=== PATIENT | male | born 1975 | race Caucasian/White ===

== ENCOUNTER 2017-07-25 15:21 | Emergency (ER) | payer MEDICAID ==
[2017-07-25] MEDS ORDERED: Dexamethasone TAB* 4 MG PO ONE (17:54)
--- NOTE | 2017-07-25 17:55 | ED ---
Throat Pain/Nasal Congestion - HPI Summary HPI Summary: 42M presents with sore throat since Monday. He states that has pain with swallowing but denies any drooling, SOB, or chest pain. He denies any difficultly swallowing. He states he had this a year ago and it resolved on its own. He denies any sinus tenderness, ear pain, abdominal pain, n/v. He has history of strept. He still has tonsils. He denies any fevers. He has been using Tylenol for pain. He states pain is 4/10. - History of Current Complaint Chief Complaint: EDThroatPain Time Seen by Provider: 07/25/17 17:08 - Allergies/Home Medications Allergies/Adverse Reactions: Allergies Allergy/AdvReac Type Severity Reaction Status Date / Time No Known Allergies Allergy Verified 04/29/14 09:50 PMH/Surg Hx/FS Hx/Imm Hx Endocrine/Hematology History: Reports: Hx Blood Disorders - hemachromatosis Cardiovascular History: Reports: Hx Hypertension Respiratory History: Reports: Hx Seasonal Allergies, Hx Sleep Apnea - severe HERMINIA , current CPAP user. GI History: Reports: Hx Gastroesophageal Reflux Disease, Hx Ulcer - 2009 duodenal w/arterial bleed Musculoskeletal History: Reports: Hx Orthopedic Injury - (left) foot fx Sensory History: Reports: Hx Contacts or Glasses Opthamlomology History: Reports: Hx Contacts or Glasses Neurological History: Reports: Hx Developmental Delay - Surgical History Surgery Procedure, Year, and Place: [place] [facility] [place] [facility] [place] - [place]. [place] [facility] [place] [facility] [place] Infectious Disease History: No Infectious Disease History: Denies: Traveled Outside the [place] in Last 30 Days - Family History Known Family History: Positive: Diabetes - Social History Alcohol Use: Occasionally Substance Use Type: Reports: None Review of Systems Negative: Fever Positive: Sore Throat Negative: Chest Pain Negative: Shortness Of Breath All Other Systems Reviewed And Are Negative: Yes Physical Exam Triage Information Reviewed: Yes Vital Signs On Initial Exam: Initial Vitals Temp Pulse Resp BP Pulse Ox 98.8 F 72 18 126/69 97 07/25/17 15:41 07/25/17 15:41 07/25/17 15:41 07/25/17 15:41 07/25/17 15:41 Vital Signs Reviewed: Yes Appearance: Positive: Well-Appearing Skin: Positive: Warm, Dry Head/Face: Positive: Normal Head/Face Inspection Eyes: Positive: Normal, EOMI, BERTO, Conjunctiva Clear ENT: Positive: Pharyngeal erythema, TMs normal, Tonsillar swelling - +1, Tonsillar exudate, Uvula midline, Other - uvula enlarged with exuduate, soft palate symmetric. Negative: Trismus, Muffled voice Respiratory/Lung Sounds: Positive: Clear to Auscultation, Breath Sounds Present Cardiovascular: Positive: Normal, RRR Abdomen Description: Positive: Nontender, Soft Bowel Sounds: Positive: Present Musculoskeletal: Positive: Normal Neurological: Positive: Normal Psychiatric: Positive: Normal Diagnostics - Vital Signs Vital Signs Temp Pulse Resp BP Pulse Ox 07/25/17 15:41 98.8 F 72 18 126/69 97 - Laboratory Lab Statement: Any lab studies that have been ordered have been reviewed, and results considered in the medical decision making process. EENT Course/Dx - Course Course Of Treatment: 42M presents with sore throat since Monday. He states that has pain with swallowing but denies any drooling, SOB, or chest pain. He denies any difficultly swallowing. He states he had this a year ago and it resolved on its own. He denies any sinus tenderness, ear pain, abdominal pain, n/v. He has history of strept. He still has tonsils. He denies any fevers. He has been using Tylenol for pain. on exam tonsils +1 symmetric, uvula midline with large amount of swelling and exudate present, soft palate symmetric. neg trismus, muffled voice. managing secretions well. strept and mono neg. discussed case with dr ring. gave dose of decadron and augmentin. gave follow up for ent. told of signs to return to ED for. patient understand and agrees with plan. - Differential Diagnoses Differential Diagnoses: Peritonsillar Ulcer, Pharyngitis, Tonsilitis, URI/ Bronchitis - Diagnoses Provider Diagnoses: Uvulitis Discharge - Discharge Plan Condition: Good Disposition: HOME Prescriptions: Amoxicillin/Clavulanate TAB* [Augmentin TAB 875*] 875 mg PO BID #19 tab Dexamethasone TAB* [Decadron TAB*] 4 mg PO DAILY #4 tab Patient Education Materials: Uvulitis (ED) Referrals: Annette Jacobson MD [Primary Care Provider] - Ruparelia,Celestino, MD [Medical Doctor] - Additional Instructions: Take antibiotic twice a day for 10 days Take steriod once a day for 4 more days Follow up with ENT Return to ED if develop shortness of breath, inability to manage secretions, or any new or worsening symptoms
[2017-07-25 19:16] LABS: Manual Entry Verification ROB0080; Mono Internal Control QC Line Present
[2017-07-25] MEDS ORDERED: Amoxicillin/Clavulanate TAB* 875 MG PO ONE (19:17)
[2017-07-25 19:38] VITALS: BP 119/65
== END 2017-07-25 19:39 | disposition home or self-care (01) ==
LOC: ED 15:21
DX: K12.2 Cellulitis and abscess of mouth (principal); I10 Essential (primary) hypertension; K21.9 Gastro-esophageal reflux disease without esophagitis; R62.50 Unspecified lack of expected normal physiological development in childhood
CPT/HCPCS: 36415; 86308; 87651; 99282; A9270-GY; J8540

== ENCOUNTER 2017-11-19 20:05 | Emergency (ER) | payer MEDICAID ==
[2017-11-19] MEDS ORDERED: hydrOXYzine HCL TAB* 50 MG PO ONE (20:50)
[2017-11-19] MEDS ORDERED: Clobetasol 0.05% OINT* 30 GM TUBE TOPICAL SCH (21:00)
--- NOTE | 2017-11-19 21:30 | ED ---
Sunni Cedillo Julia, scribed for Curt Lopez MD on 11/19/17 at 2101 . Skin Complaint - HPI Summary HPI Summary: This patient is a 42 year old M presenting to [facility] accompanied by his partner with a chief complaint of bilateral lower extremity erythema and pruritus beginning today. Patient denies pain and fever. His partner reports lower extremity edema present at baseline. Patient denies history of eczema. Patient states triamcinolone cream used once a day usually provides relief from erythema and pruritus, but has not worked with one time use today. - History of Current Complaint Chief Complaint: EDExtremityLower Time Seen by Provider: 11/19/17 20:36 Stated Complaint: BOTH ANKLES SWOLLEN Hx Obtained From: Patient Onset/Duration: Started Hours Ago Skin Exposure Onset/Duration: Hours Ago Timing: Constant Pain Intensity: 0 Pain Scale Used: 0-10 Numeric Skin Location: Other: - bilateral lower extremity Character: Pruritus, Redness Associated Signs & Symptoms: Negative - Allergy/Home Medications Allergies/Adverse Reactions: Allergies Allergy/AdvReac Type Severity Reaction Status Date / Time No Known Allergies Allergy Verified 11/19/17 20:11 PMH/Surg Hx/FS Hx/Imm Hx Endocrine/Hematology History: Reports: Hx Blood Disorders - hemachromatosis Cardiovascular History: Reports: Hx Hypertension Respiratory History: Reports: Hx Seasonal Allergies, Hx Sleep Apnea - severe HERMINIA , current CPAP user. GI History: Reports: Hx Gastroesophageal Reflux Disease, Hx Ulcer - 2009 duodenal w/arterial bleed Musculoskeletal History: Reports: Hx Orthopedic Injury - (left) foot fx Sensory History: Reports: Hx Contacts or Glasses Opthamlomology History: Reports: Hx Contacts or Glasses Neurological History: Reports: Hx Developmental Delay - Surgical History Surgery Procedure, Year, and [place]: [place] [facility] [place] - [place]. [place] [facility] [place] [facility] [place]ious Disease History: No Infectious Disease History: Denies: Traveled Outside the [place] in Last 30 Days - Family History Known Family History: Positive: Diabetes - Social History Alcohol Use: Occasionally Substance Use Type: Reports: None Smoking Status (MU): Never Smoked Tobacco Review of Systems Negative: Fever Negative: Myalgia Positive: Other - lower extremity redness and pruitus All Other Systems Reviewed And Are Negative: Yes Physical Exam - Summary Physical Exam Summary: VITAL SIGNS: Reviewed. GENERAL: Patient is a well-developed and nourished male who is lying comfortable in the stretcher. Patient is not in any acute respiratory distress. HEAD AND FACE: No signs of trauma. No ecchymosis, hematomas or skull depressions. No sinus tenderness. EYES: PERRLA, EOMI x 2, No injected conjunctiva, no nystagmus. EARS: Hearing grossly intact. Ear canals and tympanic membranes are within normal limits. MOUTH: Oropharynx within normal limits. NECK: Supple, trachea is midline, no adenopathy, no JVD, no carotid bruit, no c- spine tenderness, neck with full ROM. CHEST: Symmetric, n SKIN: Dry and warm o tenderness at palpation LUNGS: Clear to auscultation bilaterally. No wheezing or crackles. CVS: Regular rate and rhythm, S1 and S2 present, no murmurs or gallops appreciated. ABDOMEN: Soft, non-tender. No signs of distention. No rebound no guarding, and no masses palpated. Bowel sounds are normal. EXTREMITIES: FROM in all major joints, no cyanosis or clubbing. Redness and pruritus of the bilateral lower extremities without tenderness. NEURO: Alert and oriented x 3. No acute neurological deficits. Speech is normal and follows commands. Triage Information Reviewed: Yes Vital Signs On Initial Exam: Initial Vitals Temp Pulse Resp BP Pulse Ox 98.4 F 107 18 155/101 97 11/19/17 20:07 11/19/17 20:07 11/19/17 20:07 11/19/17 20:07 11/19/17 20:07 Vital Signs Reviewed: Yes Diagnostics - Vital Signs Vital Signs Temp Pulse Resp BP Pulse Ox 11/19/17 20:07 98.4 F 107 18 155/101 97 - Laboratory Lab Statement: Any lab studies that have been ordered have been reviewed, and results considered in the medical decision making process. Re-Evaluation - Re-Evaluation 1 Re-Evaluation Time: 17:28 Comment: Discussed results with patient. Patient is discharged. Course/Dx - Course Course Of Treatment: Patient presents with bilateral lower extremity erythema and pruritus beginning today. Patient denies pain and fever. His partner reports lower extremity edema present at baseline. Patient's symptoms and physicial exam are consistent with contact dermatitis/ezcema. Patient is given Hydroxyzine and Clobetasol ointment. - Diagnoses Provider Diagnoses: Contact dermatitis Discharge - Discharge Plan Condition: Stable Disposition: HOME Prescriptions: hydrOXYzine pamoate [Vistaril] 50 mg PO Q8HR PRN #20 capsule PRN Reason: Itching Patient Education Materials: Contact Dermatitis (ED) Referrals: Annette Jacobson MD [Primary Care Provider] - 2 Days (Follow up with your primary care provider in 1-2 days.) Additional Instructions: Use Clobetasol cream twice a day. RETURN TO THE EMERGENCY DEPARTMENT FOR CHANGING OR WORSENING SYMPTOMS. The documentation as recorded by the Sunni pacheco Julia accurately reflects the service I personally performed and the decisions made by , Curt Lopez MD.
[2017-11-19 21:53] VITALS: BP 141/88
== END 2017-11-19 22:11 | disposition home or self-care (01) ==
LOC: ED 20:05
DX: L25.9 Unspecified contact dermatitis, unspecified cause (principal)
CPT/HCPCS: 99282; A9270-GY

== ENCOUNTER 2018-02-06 13:07 | Emergency (ER) | payer MEDICAID ==
[2018-02-06] MEDS ORDERED: Ketorolac INJ* 30 MG/ML 1 ML VIAL IM ONE (14:41)
[2018-02-06 15:00] LABS: ABS Basophils 0.1 10^3/ul (0-0.2); ABS Eosinophils 0.2 10^3/ul (0-0.6); ABS Lymphocytes 1.3 10^3/ul (1.0-4.8); ABS Neutrophils 7.9 10^3/ul (1.5-7.7); ABS Nucleated RBC 0 10^3/ul; Eosinophil % 1.5 % (0-6); Hematocrit 46 % (42-52); Hemoglobin 15.9 g/dl (14.0-18.0); Lymphocyte % 12.3 % (25-47); Mean Corpuscular HGB Conc 35 g/dl (31-36); Mean Corpuscular Hemoglobin 31 pg (27-31); Mean Corpuscular Volume 90 fL (80-94); Nucleated Red Blood Cells % 0; Platelet Count 202 10^3/ul (150-450); Red Blood Count 5.09 10^6/ul (4.0-5.4); Red Cell Distribution Width 14 % (10.5-15); White Blood Count 10.5 10^3/ul (3.5-10.8)
--- NOTE | 2018-02-06 15:32 | RAD ---
Indication: Left flank pain. CT of the abdomen and pelvis was performed without oral or IV contrast administration. A prior CT of the abdomen dated August 11, 2004 was also reviewed. Coronal and sagittal reconstructed images were obtained. The lung bases demonstrate no pleural fluid, nodules or masses. Heart is of normal size without pericardial effusion. The graft liver is normal in size. No focal lesions or intrahepatic ductal dilatation is noted. Gallbladder demonstrates no calcified gallstones. Common duct is not dilated. Pancreas demonstrates no mass or pancreatic ductal dilatation. The spleen is normal in size. Bilateral adrenal hyperplasia is noted. The right kidney is unremarkable. There is mild hydronephrosis of left kidney. There is a 4 mm calculus in the proximal left ureter just distal to the ureteropelvic junction. There is mild hydronephrosis with perinephric infiltration of fat. There is a simple cyst in the cortex of left kidney measuring up to 11 x 7.7 cm. No retroperitoneal lymphadenopathy is noted. No dilated loops of bowel are noted. CT of the pelvis demonstrates no retroperitoneal or pelvic lymphadenopathy. Urinary bladder is unremarkable. No hernias are noted. Prostate and seminal vesicles are unremarkable. There are no dilated loops of bowel noted. There may be inguinal hernias bilaterally containing omentum. IMPRESSION: 4 mm calculus at the left ureteropelvic junction. Mild left hydronephrosis is noted. Perinephric infiltration of fat is noted with 7.8 x 10.8 cm cortical cyst. Appendix is normal.
[2018-02-06 15:59] LABS: Urine Appearance Clear; Urine Blood 2+ (Negative); Urine Color Yellow; Urine Ketones Negative (Negative); Urine Protein Negative (Negative); Urine Specific Gravity 1.016 (1.010-1.030); Urine Urobilinogen Negative (Negative)
--- NOTE | 2018-02-06 17:04 | ED ---
Ford Cedillo Angela, scribed for Alfredito Juarez MD on 02/06/18 at 1509 . GI/ HPI - HPI Summary HPI Summary: This pt is a 42 y/o male, accompanied by his mother, presenting to [facility] c/o left flank pain since this morning. Pt reports he woke up at 10:30 this morning with left flank pain. He currently rates his pain 9 out of 10 in severity and describes it as a sharp pain. Denies any trauma or injury to his back/flank. Denies hx of kidney stones. PMHx includes autism, hemachromatosis. Pt went to see his PCP for dermatitis. - History of Current Complaint Chief Complaint: EDFlankPain Time Seen by Provider: 02/06/18 14:22 Stated Complaint: LT SIDE FLANK PAIN Hx Obtained From: Patient, Family/[employer] - Mother Onset/Duration: Started Hours Ago, Still Present Timing: Lasting Hours Current Severity: Severe Pain Intensity: 8 Location of Pain: Flank - left Associated Signs and Symptoms: Negative: Nausea, Vomiting, Diarrhea, Fever, Chest Pain Aggravating Factor(s): Nothing Alleviating Factor(s): Nothing - Allergy/Home Medications Allergies/Adverse Reactions: Allergies Allergy/AdvReac Type Severity Reaction Status Date / Time No Known Allergies Allergy Verified 02/06/18 13:17 Home Medications: Home Medications Fexofenadine (NF) [Sachi 180 (NF)] 180 mg PO QAM 02/06/18 [History Confirmed 02/06/18] Hydrochlorothiazide TAB* [Hydrodiuril TAB*] 25 mg PO DAILY 02/06/18 [History Confirmed 02/06/18] Lisinopril TAB* [Prinivil TAB*] 20 mg PO DAILY 02/06/18 [History Confirmed 02/06] Metoprolol Succinate XL TAB* [Toprol XL TAB*] 50 mg PO DAILY 02/06/18 [History Confirmed 02/06/18] PMH/Surg Hx/FS Hx/Imm Hx Endocrine/Hematology History: Reports: Hx Blood Disorders - hemachromatosis Cardiovascular History: Reports: Hx Hypertension Respiratory History: Reports: Hx Seasonal Allergies, Hx Sleep Apnea - severe HERMINIA , current CPAP user. GI History: Reports: Hx Gastroesophageal Reflux Disease, Hx Ulcer - 2009 duodenal w/arterial bleed Musculoskeletal History: Reports: Hx Orthopedic Injury - (left) foot fx Sensory History: Reports: Hx Contacts or Glasses Opthamlomology History: Reports: Hx Contacts or Glasses Neurological History: Reports: Hx Developmental Delay Psychiatric History: Reports: Hx Autism - Surgical History Surgery Procedure, Year, and Place: [place] [facility] [place] - appendectomy. [place] [facility] [place]. [place] [facility] [place] Infectious Disease History: No Infectious Disease History: Denies: Traveled Outside the [place] in Last 30 Days - Family History Known Family History: Positive: Diabetes - Social History Alcohol Use: Occasionally Substance Use Type: Reports: None Smoking Status (MU): Never Smoked Tobacco Review of Systems Negative: Fever Eyes: Negative ENT: Negative Negative: Vomiting, Nausea Positive: flank pain - left All Other Systems Reviewed And Are Negative: Yes Physical Exam - Summary Physical Exam Summary: VITAL SIGNS: Reviewed. GENERAL: Patient is an obese male who is lying comfortable in the stretcher. Patient is not in any acute respiratory distress. HEAD AND FACE: No signs of trauma. No ecchymosis, hematomas or skull depressions. No sinus tenderness. EYES: PERRLA, EOMI x 2, No injected conjunctiva, no nystagmus. EARS: Hearing grossly intact. Ear canals and tympanic membranes are within normal limits. MOUTH: Oropharynx within normal limits. NECK: Supple, trachea is midline, no adenopathy, no JVD, no carotid bruit, no c- spine tenderness, neck with full ROM. CHEST: Symmetric, no tenderness at palpation LUNGS: Clear to auscultation bilaterally. No wheezing or crackles. CVS: Regular rate and rhythm, S1 and S2 present, no murmurs or gallops appreciated. ABDOMEN: Soft. No signs of distention. No rebound no guarding, and no masses palpated. Bowel sounds are normal. Left costovertebral angle tenderness. EXTREMITIES: FROM in all major joints, no edema, no cyanosis or clubbing. NEURO: Alert and oriented x 3. No acute neurological deficits. Speech is normal and follows commands. SKIN: Dry and warm Triage Information Reviewed: Yes Vital Signs On Initial Exam: Initial Vitals Temp Pulse Resp BP Pulse Ox 99.1 F 84 18 169/83 99 02/06/18 13:13 02/06/18 13:13 02/06/18 13:13 02/06/18 13:13 02/06/18 13:13 Vital Signs Reviewed: Yes Diagnostics - Vital Signs Vital Signs Temp Pulse Resp BP Pulse Ox 02/06/18 14:36 84 138/78 94 02/06/18 13:13 99.1 F 84 18 169/83 99 - Laboratory Lab Results: Lab Results 02/06/18 Range/Units 14:52 WBC 10.5 (3.5-10.8) 10^3/ul RBC 5.09 (4.0-5.4) 10^6/ul Hgb 15.9 (14.0-18.0) g/dl Hct 46 (42-52) % MCV 90 (80-94) fL MCH 31 (27-31) pg MCHC 35 (31-36) g/dl RDW 14 (10.5-15) % Plt Count 202 (150-450) 10^3/ul MPV 8.0 (7.4-10.4) um3 Neut % (Auto) 75.4 (38-83) % Lymph % (Auto) 12.3 L (25-47) % [place] % (Auto) 9.9 H (0-7) % Eos % (Auto) 1.5 (0-6) % Baso % (Auto) 0.9 (0-2) % Absolute Neuts (auto) 7.9 H (1.5-7.7) 10^3/ul Absolute Lymphs (auto) 1.3 (1.0-4.8) 10^3/ul Absolute Monos (auto) 1.0 H (0-0.8) 10^3/ul Absolute Eos (auto) 0.2 (0-0.6) 10^3/ul Absolute Basos (auto) 0.1 (0-0.2) 10^3/ul Absolute Nucleated RBC 0 10^3/ul Nucleated RBC % 0 Result Diagrams: 02/06/18 14:52 02/06/18 14:52 Lab Statement: Any lab studies that have been ordered have been reviewed, and results considered in the medical decision making process. - CT Abdomen/Pelvis CT CT Interpretation: Positive (See Comments) - IMPRESSION: 4 mm calculus at the left ureteropelvic junction. Mild left hydronephrosis is noted. Perinephric infiltration of fat is noted with 7.8 x 10.8 cm cortical cyst. Appendix is normal. Dr. Juarez has reviewed this radiology report. CT Interpretation Completed By: Radiologist SUE Course/Dx - Course Assessment/Plan: I discussed all the findings and test results with the patient. Patient was instructed to return to the emergency room immediately if any of the symptoms return or worsens. Plan of care was discussed with the patient and understands and agrees. All questions were answered at patient satisfaction. There were no further complaints or concerns. Lung exam before discharge: CTA B/L. Good air exchange. No wheezing or crackles heard. CVS: S1 and S2 present. No murmurs appreciated. Patient is alert and oriented x 3. Patient is hemodynamically stable. Patient will be discharged home with follow up PCP in the next 2-3 days - Diagnoses Provider Diagnoses: Kidney stones Discharge - Sign-Out/Discharge Documenting (check all that apply): Discharge/Admit/Transfer - Discharge - Discharge Plan Condition: Stable Disposition: HOME Prescriptions: HYDROcodone/ACETAMIN 5-325 MG* [[place] 5-325 TAB*] 1 tab PO Q4H PRN #12 tab MDD 4 PRN Reason: Pain Ibuprofen TAB* [Motrin TAB* 600 MG] 600 mg PO Q8H PRN #20 tab PRN Reason: Pain Patient Education Materials: Kidney Stones (ED) Referrals: Annette Jacobson MD [Primary Care Provider] - 3 Days Additional Instructions: Please follow up with your primary care provider. RETURN TO THE ED FOR ANY NEW OR WORSENING SYMPTOMS. - Billing Disposition and Condition Condition: STABLE Disposition: Home The documentation as recorded by the Ford pacheco Angela accurately reflects the service I personally performed and the decisions made by me, Alfredito Juarez MD.
[2018-02-06 17:38] VITALS: BP 134/72
== END 2018-02-06 17:38 | disposition home or self-care (01) ==
LOC: ED 13:07
DX: N13.2 Hydronephrosis with renal and ureteral calculous obstruction (principal); N28.1 Cyst of kidney, acquired; F84.0 Autistic disorder; E83.119 Hemochromatosis, unspecified; I10 Essential (primary) hypertension; K21.9 Gastro-esophageal reflux disease without esophagitis; R62.50 Unspecified lack of expected normal physiological development in childhood; Z90.89 Acquired absence of other organs; Z83.3 Family history of diabetes mellitus
CPT/HCPCS: 36415; 74176; 80053; 81003; 81015; 82550; 83690; 85025; 86140; 96372; 99283; J1885